=== PATIENT | female | born 1975 | race Caucasian/White ===

== ENCOUNTER → 2021-03-04 | Outpatient (CLI) | payer BC ==
--- NOTE | 2021-03-04 16:33 | CT ---
EXAMINATION TYPE: CT abdomen pelvis wo con DATE OF EXAM: 03/04/2021 HISTORY: right flank pain CT DLP: 923 mGycm. Automated Exposure Control for Dose Reduction was Utilized. TECHNIQUE: CT scan of the abdomen and pelvis is performed without oral or IV contrast. COMPARISON: NONE FINDINGS: Within the limitations of a non-contrast study, the following observations are made. LUNG BASES: Posterior multifocal scarlike opacities are identified. They are slightly more nodular an d prominent in the right lung base. There are nonspecific pelvic prior comparison LIVER/GB: There is a 1.5 cm low dense lesion favoring thin-walled cyst right hepatic lobe axial image 46. PANCREAS: No significant abnormality is seen. SPLEEN: No significant abnormality is seen. ADRENALS: No significant abnormality is seen. KIDNEYS: No renal stones or hydronephrosis seen bilaterally. BOWEL: Normal-appearing appendix seen from cecum right lower quadrant. Suboptimal evaluation of bowel without enteric contrast. No suspicious small or large bowel dilatation. Mild to moderate focal thec al prominence in the sigmoid rectal colon. GENITAL ORGANS: Anteverted uterus. Tiny amount of free fluid in the pelvis suspected coronal image 61 to left of midline is nonspecific. No obvious adnexal mass. LYMPH NODES: No greater than 1cm abdominal or pelvic lymph nodes are appreciated. OSSEOUS STRUCTURES: No significant abnormality is seen. OTHER: No significant additional abnormality is seen. IMPRESSION: No renal stones or hydronephrosis is seen bilaterally. Possible mild to moderate distal c olonic fecal stasis. No bowel obstruction. Nonspecific findings in the lung bases, cannot exclude mul tifocal areas of acute infectious etiology, correlate clinically. Progress study advised to reassess if there is no outside CT for direct correlation.
== END | disposition home or self-care (01) ==
LOC: RADCTMAIN 16:04
PROVIDERS: ATTEND Nurse Practitioner Family
DX: R10.9 Unspecified abdominal pain (principal)
CPT/HCPCS: 74176